=== PATIENT | male | born 1955 | race Caucasian/White ===

== ENCOUNTER 2018-12-29 23:35 | Emergency (ER) | payer MEDICARE ==
[2018-12-30 02:26] LABS: ALBUMIN 4.4 g/dL (3.5-5.0); ALKALINE PHOSPHATASE 81 U/L (38-126); ANION GAP 10 (5-19); ASPARTATE AMINO TRANSFERASE 26 U/L (17-59); BILIRUBIN,DIRECT 0.2 mg/dL (0.0-0.4); BILIRUBIN,TOTAL 0.4 mg/dL (0.2-1.3); BLOOD UREA NITROGEN 15 mg/dL (7-20); CALCIUM 9.8 mg/dL (8.4-10.2); CARBON DIOXIDE 26 mmol/L (22-30); CHLORIDE 109 mmol/L (98-107); GLUCOSE 87 mg/dL (75-110); POTASSIUM 3.9 mmol/L (3.6-5.0); TOTAL PROTEIN 7.7 g/dL (6.3-8.2)
--- NOTE | 2018-12-30 04:17 | ER Document Report ---
ED General - General Chief Complaint: Blood Pressure Problem Stated Complaint: BLOOD PRESSURE ISSUES Time Seen by Provider: 12/30/18 03:38 Primary Care Provider: MARVIN LONGO FNP-C [Primary Care Provider] - Follow up as needed TRAVEL OUTSIDE OF THE [place] IN LAST 30 DAYS: No - HPI Notes: This is a 63-year-old gentleman who presents today with a complaint of elevated blood pressure. Patient was recently started on lisinopril in addition to metoprolol for better blood pressure control. Patient's that his blood pressure was markedly elevated so she brought him to the emergency department. He has no complaints. He denies any headache, chest pain, dizziness, weakness or other complaints. He feels fine. Blood pressures improved here. - Related Data Allergies/Adverse Reactions: No Known Allergies Allergy (Unverified 12/30/18 00:09) Past Medical History - Social History Smoking Status: Current Every Day Smoker Chew tobacco use (# tins/day): No Frequency of alcohol use: None Drug Abuse: None Family History: Hypertension Patient has suicidal ideation: No Patient has homicidal ideation: No - Past Medical History Cardiac Medical History: Reports: Hx Hypertension Pulmonary Medical History: Reports: Hx COPD - smokes 1ppd Review of Systems - Review of Systems Constitutional: denies: Fever Cardiovascular: denies: Chest pain, Palpitations, Heart racing, Syncope, Dizziness Gastrointestinal: denies: Abdominal pain, Diarrhea, Nausea Neurological/Psychological: denies: Headaches -: Yes All other systems reviewed and negative Physical Exam - Vital signs Vitals: Temp Pulse Resp BP Pulse Ox 98.5 F 76 18 169/87 H 96 12/29/18 23:54 12/29/18 23:54 12/29/18 23:54 12/29/18 23:54 12/29/18 23:54 - General General appearance: Appears well, Alert - Respiratory Respiratory status: No respiratory distress Chest status: Nontender Breath sounds: Normal Chest palpation: Normal - Cardiovascular Rhythm: Regular Heart sounds: Normal auscultation Murmur: No - Abdominal Inspection: Normal Distension: No distension Bowel sounds: Normal Tenderness: Nontender Organomegaly: No organomegaly - Neurological Neuro grossly intact: Yes Cognition: Normal Orientation: AAOx4 [place] Coma Scale Eye Opening: Spontaneous [place] Coma Scale Verbal: Oriented [place] Coma Scale Motor: Obeys Commands [place] Coma Scale Total: 15 Speech: Normal Motor strength normal: LUE, RUE, LLE, RLE Sensory: Normal - Psychological Associated symptoms: Normal affect, Normal mood Course - Re-evaluation Re-evalutation: 12/30/18 04:14 Clinical picture suggests uncontrolled hypertension. There is no clinical suspicion for endorgan damage. Will check renal function. EKG shows normal sinus rhythm at 62 bpm. Normal axis. Normal intervals. No acute injury pattern. 4:16 Patient is doing well. Patient states has been under a lot of stress with exam otherwise blood pressure is elevated. He is stable for discharge. - Vital Signs Vital signs: Temp Pulse Resp BP Pulse Ox 98.5 F 76 13 161/84 H 95 12/29/18 23:54 12/29/18 23:54 12/30/18 02:30 12/30/18 04:01 12/30/18 04:01 - Laboratory Result Diagrams: 12/30/18 01:20 Laboratory results interpreted by me: 12/30/18 01:20 Sodium 145.4 H Chloride 109 H Discharge - Discharge Clinical Impression: Hypertension Qualifiers: Hypertension type: unspecified Qualified Code(s): I10 - Essential (primary) hypertension Condition: Stable Disposition: HOME, SELF-CARE Instructions: High Blood Pressure ([facility]), High Blood Pressure, Requiring Treatment ([facility]) Referrals: MARVIN LONGO FNP-C [Primary Care Provider] - Follow up as needed
[2018-12-30 04:42] VITALS: BP 154/85
--- NOTE | 2018-12-30 19:23 | EKG REPORT ---
SEVERITY:- NORMAL ECG - SINUS RHYTHM : Confirmed by: Lena Matias MD 30-Dec-2018 19:23:14
== END 2018-12-30 04:42 | disposition home or self-care (01) ==
LOC: ER 23:35
DX: I10 Essential (primary) hypertension (principal); Z79.899 Other long term (current) drug therapy; F17.200 Nicotine dependence, unspecified, uncomplicated
CPT/HCPCS: 36415; 80053; 93005; 93010; 99283